=== PATIENT | male | born 1955 | race Caucasian/White ===

== ENCOUNTER 2021-02-12 17:56 | Emergency (ER) | payer MEDICARE, OTHER ==
[~2021-02-12 17:56] MED LIST: ANTIVERT 25MG T25 MG PO; ASPIRIN EC81 MG PO; CLARITIN10 MG PO; CONSTULOSE10 GM/15 M PO; FINASTERIDE5 MG PO; FLOMAX0.4 MG PO; FLONASE 0.05% N16 GM; HUMALOG100 UNIT/3 SQ; IMIPRAMINE HCL50 MG PO; LEVEMIR100 UNIT/1 SQ; LIPITOR TAB 2020 MG PO; METOPROLOL TART25 MG PO; NORCO 5-325 TA1 EACH PO; NORCO 7.5-3251 EACH PO; PROAIR HFA8.5 GM INH; PROTONIX 40 MG40 M1 PO; TRADJENTA5 MG PO; ZOFRAN ODT4 MG PO; [UNRECOGNIZED DRUG - OTHER] TD
[2021-02-12 20:38] LABS: HEMOGLOBIN 17.2 gm/dl (14.0-17.5); RED BLOOD COUNT 5.83 M/UL (4.20-5.50); WHITE BLOOD COUNT 8.4 K/UL (4.5-11.0)
[2021-02-12 21:00] LABS: BUN/CREATININE RATIO 14 (0-10)
== END 2021-02-12 23:40 | disposition home or self-care (01) ==
LOC: ER1 17:56
PROVIDERS: Family Medicine
DX: I16.9 Hypertensive crisis, unspecified (principal)
CPT/HCPCS: 70450; 71046; 80053; 81001; 82550; 82553; 83874; 84484; 85025; 85610; 99284

== ENCOUNTER 2021-07-02 14:08 | Inpatient (IN) | payer MEDICARE, OTHER ==
[~2021-07-02] VITALS: Ht 175.3 cm; Wt 163.3 kg
[~2021-07-02 14:08] MED LIST changes: -FLONASE 0.05% N16 GM; -IMIPRAMINE HCL50 MG PO; -LIPITOR TAB 2020 MG PO; -METOPROLOL TART25 MG PO
[2021-07-02 14:58] LABS: HEMOGLOBIN 17.5 gm/dl (14.0-17.5); RED BLOOD COUNT 5.9 M/UL (4.20-5.50); WHITE BLOOD COUNT 9.1 K/UL (4.5-11.0)
[2021-07-03 05:05] LABS: RED BLOOD COUNT 5.78 M/UL (4.20-5.50); WHITE BLOOD COUNT 7.1 K/UL (4.5-11.0)
[2021-07-03] MEDS ORDERED: LIPITOR TAB 2020 MG PO (09:15)
[2021-07-03] MEDS ORDERED: IMIPRAMINE HCL50 MG PO (09:30)
[2021-07-03] MEDS ORDERED: FLONASE 0.05% N16 GM (09:30)
[2021-07-03] MEDS ORDERED: METOPROLOL TART25 MG PO (09:31)
[2021-07-03] MEDS ORDERED: JARDIANCE10 MG PO (12:33)
[2021-07-04 05:51] LABS: HEMOGLOBIN 16.3 gm/dl (14.0-17.5); RED BLOOD COUNT 5.63 M/UL (4.20-5.50); WHITE BLOOD COUNT 8.6 K/UL (4.5-11.0)
[2021-07-04 05:55] LABS: BUN/CREATININE RATIO 32 (0-10)
[2021-07-05 06:49] LABS: HEMOGLOBIN 16.4 gm/dl (14.0-17.5); RED BLOOD COUNT 5.95 M/UL (4.20-5.50); WHITE BLOOD COUNT 7.4 K/UL (4.5-11.0)
[2021-07-05 07:14] LABS: BUN/CREATININE RATIO 31 (0-10)
[2021-07-06 06:52] LABS: HEMOGLOBIN 16.9 gm/dl (14.0-17.5); RED BLOOD COUNT 6.2 M/UL (4.20-5.50); WHITE BLOOD COUNT 5.9 K/UL (4.5-11.0)
[2021-07-06 07:16] LABS: BUN/CREATININE RATIO 27 (0-10)
[2021-07-06] MEDS ORDERED: MEDROL DOSEPAK 24 MG PO (12:22)
--- NOTE | 2021-07-07 16:58 | NUR ---
PT OXYGEN ON ROOM AIR 93% PT OXYGEN ROOM AIR AMBULATING 90% REMAINED IN THE 90'S WHILE DRESSING
== END 2021-07-07 19:30 | disposition home or self-care (01) | DRG 177 ==
LOC: ER1 14:08 → CDU 23:12 → PROG CARE 23:12 → MED SURG 4 23:12 → PROG CARE 07-03 03:12 → MED SURG 4 07-03 18:19
PROVIDERS: Internal Medicine; Physician Assistant Medical; ADMIT Internal Medicine
PROC: 8E0ZXY6 Isolation (ICD-10-PCS; principal; 2021-07-03)
PROC: XW033E5 Introduction of Remdesivir Anti-infective into Peripheral Vein, Percutaneous Approach, New Technology Group 5 (ICD-10-PCS; 2021-07-03)
PROC: 3E0333Z Introduction of Anti-inflammatory into Peripheral Vein, Percutaneous Approach (ICD-10-PCS; 2021-07-03)
PROC: XW033H5 Introduction of Tocilizumab into Peripheral Vein, Percutaneous Approach, New Technology Group 5 (ICD-10-PCS; 2021-07-03)
PROC: B24BZZZ Ultrasonography of Heart with Aorta (ICD-10-PCS; 2021-07-03)
DX: U07.1 COVID-19 (principal); J12.82 Pneumonia due to coronavirus disease 2019; J96.01 Acute respiratory failure with hypoxia; N17.9 Acute kidney failure, unspecified; I10 Essential (primary) hypertension; E11.65 Type 2 diabetes mellitus with hyperglycemia; E78.5 Hyperlipidemia, unspecified; G47.33 Obstructive sleep apnea (adult) (pediatric); Z90.49 Acquired absence of other specified parts of digestive tract; Z80.0 Family history of malignant neoplasm of digestive organs; Z23 Encounter for immunization; Z79.4 Long term (current) use of insulin; Z79.899 Other long term (current) drug therapy; Z79.82 Long term (current) use of aspirin; Z83.3 Family history of diabetes mellitus
CPT/HCPCS: ECHO; 36415; 36600; 71045; 80053; 82550; 82553; 82803; 82962; 83735; 83874; 83880; 84484; 85025; 85027; 86140; 93005; 93306; 94664; 94760; 96374; 96375; 97162; 99284; J0248; J0456; J0696; J1100; J1650; J7030; Q0249; Q9957; U0002

== ENCOUNTER 2021-10-27 15:46 | Inpatient (IN) | payer MEDICARE, OTHER ==
[~2021-10-27] VITALS: Ht 175.3 cm; Wt 158.8 kg
[~2021-10-27 15:46] MED LIST changes: +FLONASE 0.05% N16 GM; +IMIPRAMINE HCL50 MG PO; +JARDIANCE25 MG PO; +LIPITOR TAB 2020 MG PO; +MEDROL DOSEPAK 24 MG PO; +METOPROLOL TART25 MG PO
[2021-10-27 18:57] LABS: HEMOGLOBIN 17.6 gm/dl (14.0-17.5)
[2021-10-27 19:35] LABS: BUN/CREATININE RATIO 14 (0-10)
[2021-10-27 19:57] LABS: RED BLOOD COUNT 6.12 M/UL (4.20-5.50); WHITE BLOOD COUNT 10.2 K/UL (4.5-11.0)
[2021-10-28 07:26] LABS: HEMOGLOBIN 16.9 gm/dl (14.0-17.5); RED BLOOD COUNT 5.68 M/UL (4.20-5.50)
[2021-10-28 07:46] LABS: BUN/CREATININE RATIO 17 (0-10)
[2021-10-28] MEDS ORDERED: MECLIZINE HCL25 MG PO (10:19)
[2021-10-28] MEDS ORDERED: HUMALOG100 UNIT/1 SQ (10:20)
[2021-10-29 02:59] LABS: HEMOGLOBIN 16.1 gm/dl (14.0-17.5); RED BLOOD COUNT 5.43 M/UL (4.20-5.50); WHITE BLOOD COUNT 7.6 K/UL (4.5-11.0)
[2021-10-30 03:15] LABS: HEMOGLOBIN 15.5 gm/dl (14.0-17.5); RED BLOOD COUNT 5.27 M/UL (4.20-5.50); WHITE BLOOD COUNT 6.9 K/UL (4.5-11.0)
[2021-10-30 03:32] LABS: BUN/CREATININE RATIO 22 (0-10)
[2021-10-31 03:08] LABS: HEMOGLOBIN 15.5 gm/dl (14.0-17.5); RED BLOOD COUNT 5.25 M/UL (4.20-5.50); WHITE BLOOD COUNT 8.1 K/UL (4.5-11.0)
--- NOTE | 2021-10-31 05:05 | NUR ---
PATIENTS K WAS LOW MD NOTIFIED AND PROTOCOL ORDERS PLACED FOR REPLACEMENT.
[2021-10-31] MEDS ORDERED: FLOMAX0.4 MG PO (10:01)
[2021-10-31] MEDS ORDERED: CARVEDILOL25 MG PO (10:01)
[2021-10-31] MEDS ORDERED: LEVOFLOXACIN750 MG PO (10:01)
[2021-10-31] MEDS ORDERED: LASIX40 MG PO (10:01)
[2021-10-31] MEDS ORDERED: HUMIBID LA TAB600 MG PO (10:01)
== END 2021-10-31 13:06 | disposition home or self-care (01) | DRG 193 ==
LOC: ER1 15:46 → CDU 23:59 → M/S 23:59
PROVIDERS: Internal Medicine; ADMIT Internal Medicine
PROC: 5A09357 Assistance with Respiratory Ventilation, Less than 24 Consecutive Hours, Continuous Positive Airway Pressure (ICD-10-PCS; principal; 2021-10-27)
PROC: 5A09357 Assistance with Respiratory Ventilation, Less than 24 Consecutive Hours, Continuous Positive Airway Pressure (ICD-10-PCS; 2021-10-30)
PROC: 5A09357 Assistance with Respiratory Ventilation, Less than 24 Consecutive Hours, Continuous Positive Airway Pressure (ICD-10-PCS; 2021-10-30)
DX: J12.9 Viral pneumonia, unspecified (principal); J96.01 Acute respiratory failure with hypoxia; Z20.822 Contact with and (suspected) exposure to COVID-19; I50.33 Acute on chronic diastolic (congestive) heart failure; Z68.43 Body mass index [BMI] 50.0-59.9, adult; N40.0 Benign prostatic hyperplasia without lower urinary tract symptoms; E11.9 Type 2 diabetes mellitus without complications; G47.33 Obstructive sleep apnea (adult) (pediatric); E66.01 Morbid (severe) obesity due to excess calories; E78.5 Hyperlipidemia, unspecified; I11.0 Hypertensive heart disease with heart failure; Z79.4 Long term (current) use of insulin; Z99.81 Dependence on supplemental oxygen; Z87.01 Personal history of pneumonia (recurrent); Z90.49 Acquired absence of other specified parts of digestive tract; Z83.79 Family history of other diseases of the digestive system; Z83.3 Family history of diabetes mellitus
CPT/HCPCS: 0240U; 36415; 36600; 71045; 80048; 80053; 81001; 82550; 82553; 82803; 82962; 83036; 83735; 83880; 84132; 84484; 85025; 86140; 87086; 93005; 94640; 94660; 94664; 94760; 96365; 96375; 97116-GP-CQ; 97162; 99285; G0378; J1120; J1205; J1650; J1940; J1956; J2405; J2920; Q9967

== ENCOUNTER → 2021-12-05 | Outpatient (CLI) | payer MEDICARE, OTHER ==
[~2021-12-05] MED LIST changes: +CARVEDILOL25 MG PO; +HUMALOG100 UNIT/1 SQ; +HUMIBID LA TAB600 MG PO; +LASIX40 MG PO; +LEVOFLOXACIN750 MG PO; +MECLIZINE HCL25 MG PO
== END ==
LOC: HEART 5 15:12
DX: R06.02 Shortness of breath (principal); Z86.16 Personal history of COVID-19; R91.8 Other nonspecific abnormal finding of lung field
CPT/HCPCS: 71046; 94060; 94729